=== PATIENT | male | born 1985 | race Caucasian/White ===

== ENCOUNTER 2023-07-12 23:27 | Inpatient (IN) | payer OTHER, SELFPAY ==
[2023-07-12 23:26] VITALS: BP 140/87; PULSE 85; RESP 16; TEMP 36.1; O2SAT 100
[2023-07-13] VITALS (7 sets, daily range): BP systolic 128–150; BP diastolic 75–82; PULSE 73–95; RESP 16–18; TEMP 36.3–37.7; O2SAT 98–100
--- NOTE | 2023-07-13 04:40 | W.PM.CROSSCO ---
Assessment and Plan Assessment and plan (1) Pyelonephritis: Status: Acute Plan Deng Torresist Consult for Admission eHospitalist was contacted with request of consultation for admission. 37-year-old male, past medical history significant for T1DM, HTN, HLD, neurogenic bladder, transferred form outside hospital for further management of pyelonephritis. Patient states he developed right lower quadrant pain on Friday, in addition to feeling very tired. The next day, he felt twice as bad. Reports extreme exhaustion, fever of 103. Patient felt like presentation was similar to prior episode of pyelonephritis and presented for further evaluation of note, patient had ureteral stent placed proximately a month ago, a few days later developed cultures +E faecalis. Since that time, patient has also developed neurogenic bladder, requiring self-catheterization. Patient denies any chest pain, flank pain. Does endorse slight cough, body aches, nausea. Home Medications: Reviewed. Pertinent Medical History: Reviewed. Pertinent Social History: Reviewed. Denies tobacco, illicit drug use. Endorses alcohol use, approximately 2 drinks per day. Exam (performed via interactive video with assistance of bedside nurse): General: alert, cooperative, no acute distress Lungs: clear to auscultation bilaterally without crackle or wheeze CV: regular rate and rhythm without loud murmur rub or gallop Abd: denies tenderness and does not exhibit signs of pain with palpation done by bedside nurse Ext: no pitting edema noted Skin: no rashes, bruises or lesions appreciated on gross visualization of exposed skin Neuro: alert, oriented x 3. facial muscles grossly intact, moves all extremities without any significant focal deficit appreciated by nurse #Pylenephritis #Ureteral stricture, s/p stent placement #Neurogenic bladder ?Per review of outside records, case had been discussed with urology, recommended initiation of vancomycin (based on recent E faecalis infection). Will continue, consult placed to pharmacy for assistance with vancomycin dosing. Urine culture pending outside hospital. ?Continue Rashid catheter at this time ? Acetaminophen, ondansetron available as needed #T1DM ? Okay to use home insulin pump and settings #Hypokalemia ? Per outside records, given 60 mEq potassium bicarb ? Recheck BMP in the AM. Diet: regular VTE ppx: ambulation Code status: FULL CODE Thank you for including Deng Montalvo in this patient's care. This service is available for further assistance as requested by your care team by calling [phone]. Dictation Comment: This document was transcribed utilizing [id number] technology ([address] software). Occasional mistranslation may occur.
--- NOTE | 2023-07-13 06:39 | PC.NURSE ---
pleasant and cooperative. Indep in room. Rashid patent and draining. No c/o pain. Afebrile since Admin to floor. VSS. Dexcom to left upper arm, BG 127 @ 0200. Insulin pump to left thigh, OK'd pt to use.
[2023-07-13 06:57] LABS: Basophils Absolute Auto 0.02 K/uL (0.00-0.30); Basophils Percent Auto 0.3 % (0.0-3.0); Eosinophils Absolute Auto 0.04 K/uL (0.00-0.50); Eosinophils Percent Auto 0.5 % (0.0-7.0); Hematocrit 35.9 % (37.0-53.0); Hemoglobin* 12.5 gm/dL (13.5-17.5); Immature Granulocytes Abs Auto 0.01 K/uL (0.00-0.30); Immature Granulocytes Pct Auto 0.1 %; Lymphocytes Percent Auto 11.3 % (20-44); Mean Corpuscular HGB Conc 35 gm/dL (32-36); Mean Corpuscular Hemoglobin 30 pg (26-34); Mean Corpuscular Volume 87 fL (80-100); Monocytes Percent Auto 9.3 % (0.0-11.0); Neutrophils Percent Auto 78.5 % (42.0-72.0); Platelet Count* 189 K/uL (140-440); RDW Coefficient of Variation % 11.8 % (11.5-15.5); Red Blood Count 4.13 m/uL (4.30-5.90); White Blood Count* 7.52 K/uL (4.50-11.00)
[2023-07-13 06:59] LABS: Slide Review Reflex No
[2023-07-13 07:22] LABS: Chloride* 104 mmol/L (96-114); Potassium* 3.1 mmol/L (3.6-5.1); Sodium* 137 mmol/L (135-149)
[2023-07-13 07:25] LABS: Anion Gap 5 mEq/L (7-15); Blood Urea Nitrogen* 15 mg/dL (5-24); Carbon Dioxide* 28 mmol/L (20-32); Creatinine* 0.9 mg/dL (0.5-1.5); Estimated Glomerular Filt Rate 111 ml/min; Glucose* 99 mg/dL (60-115)
[2023-07-13 07:26] LABS: Calcium* 7.5 mg/dL (8.4-10.6)
--- NOTE | 2023-07-13 07:33 | P.IMHP_ITS ---
Hospitalist- H&P: HPI History of Present Illness Date Seen: 07/13/23 Chief complaint: Pyelonephritis Narrative: ADMISSION HISTORY AND PHYSICAL - HOSPITALIST Chief Complaint: Fever, right lower quadrant pain, pyelonephritis HPI: -patient transferred [place] [facility] early this morning, 07/13/2023 -patient has a medical history notable for humeral radial synostosis, type 1 diabetes on insulin pump, recent ureteral stent placement and diagnosis of neurogenic bladder with a self catheterization routine necessitated -presented to outside emergency room last night, 07/12/2023, with fever, malaise, nausea. Found to have pyelonephritis. Approximately one month ago, during a routine cardiac appointment and scans - his right kidney was noted to be enlarged and ureter stenotic. when a distal approach stent failed, a nephrostomy tube and stent was placed. 3 days after rem oval of nephrostomy, he was hospitalized for 4 days [place] with similar presentation and pyelonephritis. Enterococcus faecalis was isolated from that urine culture. Last night, patient had elevated, mild, white blood cell count. Markedly elevated CRP at 145. Blood cultures were drawn. Urine culture is pending. Cefepime and vancomycin were ordered. Fluid bolus was given. Patient was t ransferred to [place] secondary to no bed availability in the [facility]. Vitals have been stable since arrival. He has been afebrile. CODE STATUS: FULL CODE EMERGENCY CONTACT PLAN: Mother and reid Gonzalez I've updated the [facility], medications and allergies in the Expanse tabs. INVESTIGATIONS: LABS/MICRO/ECG/IMAGING Afebrile since arrival. 130/82, pulse 88, respirations 16, pulse ox 100% on room air. Weight 84.9 kilos. At [place] -hemoglobin 14 -white blood cell count 10.2 -potassium 2.9 -creatinine 1.2 -total calcium 8.5 -LFTs normal -CRP 145 -normal lactate of 1.3 Urine reveals moderate leukocyte esterase, negative nitrite, negative glucose, trace ketones, greater than 100 white blood cells, 3-10 red blood cells, present bacteria Beta hydroxybutyrate 0.1 -negative for influenza, SARS-CoV-2 -2 blood cultures pending drawn at 8:54 p.m. on 07/12/2023 at [place] Urine culture from 06/15: Enterococcus faecalis, susceptible to ampicillin, daptomycin, nitrofurantoin, vancomycin -normal chest x-ray - done at [place] Abdomen pelvis CT - done at [place]: -acute right pyelonephritis -mild right hydronephrosis, right ureteral stent in place proximal tip near the utero pelvic junction distal tip within the urinary bladder Patient receive 17 150 mg of IV vancomycin that started at 9:05 p.m. on 07/12/2023 Patient received a dose of cefepime, 2 g at 9:05 a.m. on 07/12. Patient received 60 once potassium bicarb at 8:45 p.m. on 07/12 A 14 Telugu coude Rashid catheter was placed at 8:00 p.m. on 07/12/2023 White count is down to 7.5. Potassium is dropped to 3.1. CRP is down to 13.3 procalcitonin is 0.3 REVIEW OF SYSTEMS: 12-point ROS completed with patient and negative unless otherwise stated in HPI or below. PHYSICAL EXAM: CONSTITUTIONAL: Conversive, good historian. A/O. Knows setting and context. VITAL SIGNS: see record. HEENT: Normocephalic, atraumatic. PERRL, EOMI, conjunctivae pink, no scleral icterus. Ears and nose externally normal. Pharynx normal. NECK: No JVD. No carotid bruit, no thyromegaly, no adenopathy. CHEST: Clear to auscultation bilaterally HEART: S1 and S2 normal. No harsh murmurs. Edema MUSCULOSKELETAL: No gross joint deformity or swelling. NEURO: Cranial nerves intact. Grossly intact. No asymmetric findings. SKIN: No rashes, petechiae, concerning changes PSYCHIATRIC: Euthymic. ADMIT TO MEDSURG: FLOOR CARE DVT: SCDs GI: PO intake Time spent: Today I spent 75 minutes seeing the patient, discussing the patient with ER staff, reviewing Expanse and EPIC notes/diagnostics, discussing the care plan with our care time that includes social work, PT/OT, pharmacy, RT, mcc and documenting my impressions and plan in the medical record. 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 ?Q70.03 - Fused fingers, bilateral (ICD-10) Humeroradial synostosis of both upper extremities ?Q74.0 - Other congenital malformations of upper limb(s), including shoulder girdle (ICD-10) Ureteral stent present ?Z96.0 - Presence of urogenital implants (ICD-10) Ureteral stricture ?N13.5 - Crossing vessel and stricture of ureter without hydronephrosis (ICD- 10) Neurogenic bladder ?N31.9 - Neuromuscular dysfunction of bladder, unspecified (ICD-10) Hypertension ?I10 - Essential (primary) hypertension (ICD-10) Hyperlipidemia ?E78.5 - Hyperlipidemia, unspecified (ICD-10) Asthma ?J45.909 - Unspecified asthma, uncomplicated (ICD-10) Type 1 diabetes ?E10.9 - Type 1 diabetes mellitus without complications (ICD-10) Surgical History (Updated 07/13/23 @ 11:09 by Kiesha Robb MD) History of heart surgery ?Z98.890 - Other specified postprocedural states (ICD-10) History of nephrostomy Social History (Updated 07/13/23 @ 11:09 by Kiesha Robb MD) Narrative: single. lives alone. no children. works for [employer]. nonsmoker. no recreational drugs. What is your current living situation?: I presently have a place to live Problems where you live: no known problems Problems where you live details: n/a In the past 12 months, utilities in danger of being shut off: no In the past 12 mos, have been you worried that your food would run out before you had money to buy more?: never true In the past 12 mos, the food you bought just didn't last and you didn't have money to buy more?: never true Highest level of school completed/degree received: Master's degree Smoking Status: Never smoker How often do you have a drink containing alcohol: 4 or more times a week Alcohol type: wine Alcohol type details: 1-2 glasses red wine/day How many standard drinks containing alcohol do you have on a typical day: 1 or 2 How often do you have six or more drinks on one occasion: Less than monthly AUDIT-C Alcohol total score: 5 Non-prescribed substance use: denies use Caffeine: Yes (Cold Brew Coffee) How often does anyone, including family, friends and others, physically hurt you : never How often does anyone, including family, friends and others, insult or talk down to you: never How often does anyone, including family, friends and others, threaten you with harm: never How often does anyone, including family, friends and others, scream or curse at you: never Meds Home Medications and Allergies Home Medications Medication Instructions Recorded Confirmed Type amlodipine 5 mg tablet 5 mg PO DAILY 07/13/23 07/13/23 History atorvastatin 10 mg tablet 10 mg PO DAILY 07/13/23 07/13/23 History insulin lispro 100 unit/mL subcut 07/13/23 History subcutaneous solution (Humalog U-100 Insulin) losartan 100 1 tab PO DAILY 07/13/23 07/13/23 History mg-hydrochlorothiazide 25 mg tablet metoprolol succinate 100 mg 100 mg PO DAILY 07/13/23 07/13/23 History tablet,extended release 24 hr Allergies Allergy/AdvReac Type Severity Reaction Status Date / Time No Known Drug Allergies Allergy Verified 07/13/23 02:43 Exam Const: Vital Signs, click to edit/add: Vital Signs - 24 hr 07/12/23 23:26 07/13/23 00:03 07/13/23 03:00 Temperature 97 F L 97.4 F L Pulse Rate [Pulse Oximeter] 85 88 Respiratory Rate 16 16 16 Blood Pressure [Ri ght Arm] 140/87 H 130/82 Pulse Oximetry 100 100 100 Oxygen Delivery Me thod Room Air Room Air Room Air Hospitalist - H&P: Result Labs Labs: Short CBC 07/13/23 Range/Units 06:50 WBC 7.52 (4.50-11.00) K/uL Hgb 12.5 L (13.5-17.5) gm/dL Hct 35.9 L (37.0-53.0) % Plt Count 189 (140-440) K/uL Assessment and Plan Assessment and plan (1) Pyelonephritis: Problem comment: -2nd lifetime occurrence. First was in May 2023, 4 days at the [facility]. -continue cefepime and vancomycin q.12 until blood cultures and urine culture finalized. -patient is afebrile, eating and drinking, has Rashid placed, does not seem acutely ill. Status: Acute (2) Ureteral stent present: Problem comment: -right -8F, placed by Dr. Nye on 06/13/23 Status: Acute (3) Ureteral stricture: Problem comment: Right ureter Status: Acute (4) Neurogenic bladder: Problem comment: -diagnosed summer, self catheterization protocol Status: Acute (5) Type 1 diabetes: Problem comment: -A1c runs in the 6 is. Well managed w/dexcom and insulin pump. -continue current home regimen Status: Acute (6) Asthma: Problem comment: -mild Status: Acute (7) Hyperlipidemia: Problem comment: -statin therapy Status: Acute (8) Hypertension: Problem comment: -for med home regimen to be continued with surveillance Status: Acute
[2023-07-13 07:42] LABS: Albumin* 3.4 g/dL (3.3-5.0)
[2023-07-13 08:05] LABS: C Reactive Protein* 13.3 mg/dL (0.5-1.0)
[2023-07-13 08:12] LABS: Alanine Aminotransferase* 36 U/L (4-50); Alkaline Phosphatase* 109 U/L (40-150); Aspartate Amino Transferase* 34 U/L (12-35); Bilirubin Direct* 0.1 mg/dL (0.0-0.5); Bilirubin Total* 1.2 mg/dL (0.1-1.5); Total Protein* 6.2 g/dL (6.0-8.3)
[2023-07-13 09:10] LABS: Hemoglobin A1C* 6.35 % (0-5.6)
[2023-07-13] MEDS: SODIUM CHLORIDE 0.9 % (FLUSH) 10 ML SYRINGE 5 ML IVF ×2 (09:44→21:08)
[2023-07-13] MEDS: ATORVASTATIN 10 MG TABLET PO (12:46)
[2023-07-13] MEDS: METOPROLOL SUCCINATE (XL) 100 MG TAB PO (12:46)
[2023-07-13] MEDS: BENZOCAINE/MENTHOL 1 EACH LOZENGE MUCOUS MEM ×2 (18:14→21:53)
--- NOTE | 2023-07-13 18:51 | PC.NURSE ---
Pt alert and oriented. VSS. Pt pleasant and cooperative. Pt independent in room with walking and needing very minimal help with LE dressing due to catheter being in place. The catheter was placed at [facility] before admission. Pt?s temperature ranged from 98.7-99.9 during shift; hospitalist notified. Pt has a glucose monitor and insulin pump that coincide with each other to deliver calculated dosage of insulin. Pt blood glucose before breakfast 122; no insulin administered by pump. Pt?s glucose prior to lunch 246; insulin pump administered 5.45 units and Pt administered an additional 2 units. Pt?s blood glucose before dinner 208; insulin pump automatically administered 4.25 units. Pt has dry cough that he has had for one month; worsens with talking; See EMAR for intervention.?
--- NOTE | 2023-07-14 04:06 | PC.NURSE ---
PATIENT PLEASANT AND COOPERATIVE, ALERT AND ORIENTED, UP IND IN ROOM WITH STEADY GAIT, PENDLETON PATENT AND DRAINING, DECLINING PAIN, TOLERATING REGULAR DIET, AFEBRILE.
[2023-07-14 05:00] VITALS: BP 132/83; PULSE 73; RESP 16; TEMP 36.2; O2SAT 99
[2023-07-14 06:23] LABS: Hematocrit 34.9 % (37.0-53.0); Hemoglobin* 12.1 gm/dL (13.5-17.5); Mean Corpuscular HGB Conc 35 gm/dL (32-36); Mean Corpuscular Hemoglobin 30 pg (26-34); Mean Corpuscular Volume 87 fL (80-100); Platelet Count* 176 K/uL (140-440)
[2023-07-14 06:28] LABS: Slide Review Reflex No
[2023-07-14 06:46] LABS: Chloride* 104 mmol/L (96-114); Potassium* 3.2 mmol/L (3.6-5.1); Sodium* 137 mmol/L (135-149)
[2023-07-14 06:49] LABS: Creatinine* 0.8 mg/dL (0.5-1.5); Estimated Glomerular Filt Rate 115 ml/min
[2023-07-14 06:50] LABS: Anion Gap 6 mEq/L (7-15); Blood Urea Nitrogen* 10 mg/dL (5-24); Calcium* 8.4 mg/dL (8.4-10.6); Carbon Dioxide* 27 mmol/L (20-32); Glucose* 114 mg/dL (60-115)
[2023-07-14 06:53] LABS: C Reactive Protein* 6.7 mg/dL (0.5-1.0)
[2023-07-14 07:45] VITALS: BP 145/87; PULSE 82; RESP 18; TEMP 36; O2SAT 97
[2023-07-14] MEDS: METOPROLOL SUCCINATE (XL) 100 MG TAB PO (09:19)
[2023-07-14] MEDS: ATORVASTATIN 10 MG TABLET PO (09:20)
[2023-07-14] MEDS: SODIUM CHLORIDE 0.9 % (FLUSH) 10 ML SYRINGE 5 ML IVF ×2 (09:20→21:40)
[2023-07-14 10:45] VITALS: BP 143/93; PULSE 80; RESP 16; TEMP 36.3; O2SAT 99
[2023-07-14 15:00] VITALS: BP 143/87; PULSE 82; RESP 16; TEMP 36.4; O2SAT 99
--- NOTE | 2023-07-14 15:31 | PM.IMPN1 ---
Progress Note: A&P Assessment and plan (1) Pyelonephritis: Problem details: -2nd lifetime occurrence. First was in May 2023, 4 days at the [facility]. -continue cefepime and vancomycin q.12 until blood cultures and urine culture finalized. -patient is afebrile, eating and drinking, has Rashid placed, does not seem acutely ill. Status: Acute (2) Ureteral stent present: Problem details: -right -8F, placed by Dr. Nye on 06/13/23 Status: Acute (3) Ureteral stricture: Problem details: Right ureter Status: Acute (4) Neurogenic bladder: Problem details: -diagnosed summer, self catheterization protocol Status: Acute Assessment and Plan: Need to proceed with teaching for self catheterization. (5) Type 1 diabetes: Problem details: -A1c runs in the 6 is. Well managed w/dexcom and insulin pump. -continue current home regimen Status: Acute (6) Asthma: Problem details: -mild Status: Acute (7) Hyperlipidemia: Problem details: -statin therapy Status: Acute (8) Hypertension: Problem details: -for med home regimen to be continued with surveillance Status: Acute Plan 1. Continue with current regimen until we obtain results of cultures. 2. Reviewed with patient. He is agreeable. Time Spent With Patient Total time spent: 30 Subjective Time Seen by Provider: 11:30 Date Seen: 07/14/23 Interval history: Hospital day 3. Feeling much improved. Still receiving IV antibiotics. Tolerating. Denies diarrhea. No more fevers, rigors, diaphoresis. Still waiting results of cultures obtained at the [facility]. Exam Narrative: Exam Narrative: Examined in his room. Vision and hearing are grossly normal. Alert, oriented to self, place, time, situation. Friendly, cooperative, articulate, even jovial. Mood and affect are congruent. Lungs clear to auscultation. Heart tones with regular rhythm. Abdomen with active bowel sounds, soft, nontender. Rashid catheter in place. No focal motor neurologic deficits. Const: Vital Signs, click to edit/add: Vital Signs - 24 hr 07/13/23 19:00 07/13/23 23:00 07/13/23 23:00 Temperature 98.2 F Pulse Rate [Pulse Oximeter] 73 Respiratory Rate 16 16 Blood Pressure [Ri ght Arm] 150/79 H Pulse Oximetry 99 99 Oxygen Delivery Me thod Room Air 07/13/23 23:00 07/14/23 05:00 07/14/23 07:45 Temperature 98.0 F 97.1 F L 96.8 F L Pulse Rate [Pulse Oximeter] 81 73 82 Respiratory Rate 16 16 18 Blood Pressure [Ri ght Arm] 133/75 132/83 145/87 H Pulse Oximetry 100 99 97 Oxygen Delivery Me thod Room Air Room Air Room Air 07/14/23 07:45 07/14/23 10:45 Temperature 97.4 F L Pulse Rate [Pulse Oximeter] 80 Respiratory Rate 16 Blood Pressure [[facility] Arm] 143/93 H Pulse Oximetry 97 99 Oxygen Delivery Me thod Room Air Documenting provider has reviewed patient's vital signs: yes Labs Labs: Laboratory Results - last 24 hr 07/14/23 06:06 WBC 4.30 L RBC 4.00 L Hgb 12.1 L Hct 34.9 L MCV 87 MCH 30 MCHC 35 Plt Count 176 Sodium 137 Potassium 3.2 L Chloride 104 Carbon Dioxide 27 Anion Gap 6 L BUN 10 Creatinine 0.8 Estimated GFR 115 Glucose 114 Calcium 8.4 C-Reactive Protein 6.7 H
[2023-07-14] MEDS: POTASSIUM BICARB 25 MEQ EFFERVESCENT TAB PO ×2 (16:11→17:46)
[2023-07-14] MEDS: BENZOCAINE/MENTHOL 1 EACH LOZENGE MUCOUS MEM ×2 (17:45→19:48)
[2023-07-14 19:00] VITALS: BP 154/86; PULSE 88; RESP 16; TEMP 36.7; O2SAT 100
[2023-07-14 23:00] VITALS: O2SAT 100
--- NOTE | 2023-07-14 23:20 | PC.NURSE ---
End of Shift: Patient pleasant and cooperative. Afebrile. Denies pain. Up independently in room. Tolerating regular diet with no nausea. Managing own insulin pump. Gay patent.
[2023-07-15 00:11] VITALS: BP 147/84; PULSE 78; RESP 16; TEMP 37.1; O2SAT 100
[2023-07-15] MEDS: BENZOCAINE/MENTHOL 1 EACH LOZENGE MUCOUS MEM (00:18)
[2023-07-15 04:41] VITALS: BP 138/87; PULSE 75; RESP 16; TEMP 37.4; O2SAT 98
--- NOTE | 2023-07-15 05:17 | PC.NURSE ---
[id number]: Patient pleasant and cooperative. Denies pain. Independent in room. via[employer]nsics patent. Afebrile. PRN lozenge for intermittent chronic dry cough.
[2023-07-15 06:24] LABS: Hemoglobin* 12.7 gm/dL (13.5-17.5); Mean Corpuscular HGB Conc 35 gm/dL (32-36); Mean Corpuscular Hemoglobin 31 pg (26-34); Mean Corpuscular Volume 87 fL (80-100); Platelet Count* 191 K/uL (140-440); Red Blood Count 4.13 m/uL (4.30-5.90); White Blood Count* 4.53 K/uL (4.50-11.00)
[2023-07-15 06:25] LABS: Slide Review Reflex No
[2023-07-15 06:34] LABS: Potassium* 3.8 mmol/L (3.6-5.1)
[2023-07-15 09:00] VITALS: BP 139/86; PULSE 82; RESP 16; TEMP 36.4; O2SAT 98
[2023-07-15] MEDS: METOPROLOL SUCCINATE (XL) 100 MG TAB PO (10:08)
[2023-07-15] MEDS: ATORVASTATIN 10 MG TABLET PO (10:08)
[2023-07-15] MEDS: 0.9 % SODIUM CHLORIDE 250 ml IV (10:10)
[2023-07-15] MEDS: SODIUM CHLORIDE 0.9 % (FLUSH) 10 ML SYRINGE 5 ML IVF (10:10)
--- NOTE | 2023-07-15 14:22 | PC.NURSE ---
VSS AND AFEBRILE. LS CLEAR. BS ACTIVE AND PASSING GAS. TOLERATING REGULAR DIET WITH NO C/O N/V. DENIES PAIN. PENDLETON DC'D AND REVIEWED PROCESS OF STRAIGHT CATHETERIZATION TO ENSURE SAFE TECHNIQUE. DISCUSSED HANDWASHING AND JOSE-CARE PRIOR TO CATHETERIZATION AND PATIENT SENT WITH SEVERAL DAYS OF PROVIDONE SWABS TO CLEANSE WITH. SALINE LOCK DC'D AND REVIEWED DC INSTRUCTIONS. PATIENT SHOWERED PRIOR TO DISCHARGE AND DC'D HOME VIA SELF.
--- NOTE | 2023-07-15 15:50 | P.DS_ITS ---
DS: Providers Provider Time Seen by Provider: 11:00 Date Seen: 07/15/23 Date of admission: 07/12/23 23:27 Primary care physician: Nafisa Liam MD Admitting Clinician: Awa Angel MD Attending Physician on discharge: Awa Angel MD Date of Discharge: 07/15/23 DS: Diagnosis Discharge Diagnosis (1) Pyelonephritis: Status: Acute Problem details: -2nd lifetime occurrence. First was in May 2023, 4 days at the [facility]. -continue cefepime and vancomycin q.12 until blood cultures and urine culture finalized. -patient is afebrile, eating and drinking, has Rashid placed, does not seem acutely ill. (2) Ureteral stricture: Status: Acute Problem details: Right ureter (3) Ureteral stent present: Status: Acute Problem details: -right -8F, placed by Dr. Nye on 06/13/23 (4) Neurogenic bladder: Status: Acute Problem details: -diagnosed summer, self catheterization protocol (5) Hypertension: Status: Acute Problem details: -for med home regimen to be continued with surveillance (6) Type 1 diabetes: Status: Acute Problem details: -A1c runs in the 6 is. Well managed w/dexcom and insulin pump. -continue current home regimen (7) Asthma: Status: Acute Problem details: -mild (8) Hyperlipidemia: Status: Acute Problem details: -statin therapy DS: Summary Hospital Course Hospital Course: HPI: -patient transferred [place] [facility] early this morning, 07/13/2023 -patient has a medical history notable for humeral radial synostosis, type 1 diabetes on insulin pump, recent ureteral stent placement and diagnosis of neurogenic bladder with a self catheterization routine necessitated -presented to outside emergency room last night, 07/12/2023, with fever, malaise, nausea. Found to have pyelonephritis. Approximately one month ago, during a routine cardiac appointment and scans - his right kidney was noted to be enlarged and ureter stenotic. when a distal approach stent failed, a nephrostomy tube and stent was placed. 3 days after removal of nephrostomy, he was hospitalized for 4 days [place] with similar presentation and pyelonephritis. Enterococcus faecalis was isolated from that urine culture. Last night, patient had elevated, mild, white blood cell count. Markedly elevated CRP at 145. Blood cultures were drawn. Urine culture is pending. Cefepime and vancomycin were ordered. Fluid bolus was given. Patient was transferred to [place] secondary to no bed availability in the [facility]. Vitals have been stable since arrival. He has been afebrile. His condition improved substantially over a relatively short period of time. Fever resolved. Nausea resolved. Malaise resolved. In time we obtain the results of the urine culture from the [place] [facility]. Urine culture grew out Klebsiella aerogenes which had intermediate sensitivity to nitrofurantoin and was susceptible to piperacillin and tazobactam, ceftazidime, ceftriaxone, cefepime, aztreonam, ertapenem, meropenem, gentamicin, tobramycin, and levofloxacin. At time of discharge we stopped the IV cefepime and switched him to oral Omnicef 300 mg 2 times daily for 10 more days. Recommended he have follow up with primary care physician as well as urologist as specified below. We retired him self catheterization techniques to minimize his risk of causing urinary tract infections by carrying out this technique in an unsafe fashion. Status at Discharge Functional status at discharge: independent ambulation Overall status at discharge: patient is back to baseline Time Spent with Patient Time attestation: Total time spent providing and/or coordinating discharge services: Time spent: Less than 30 minutes Exam Narrative: Exam Narrative: Examined in his room. Vision and hearing are grossly normal. Alert, oriented to self, place, time, situation. Friendly, cooperative, articulate, even jovial. Mood and affect are congruent. Lungs clear to auscultation. Heart tones with regular rhythm. Abdomen with active bowel sounds, soft, nontender. Rashid catheter is removed. No focal motor neurologic deficits. Const: Vital Signs, click to edit/add: Vital Signs - 24 hr 07/14/23 19:00 07/14/23 23:00 07/15/23 00:11 Temperature 98.1 F 98.8 F Pulse Rate [Pulse Oximeter] 88 78 Respiratory Rate 16 16 Blood Pressure [Ri ght Arm] 154/86 H 147/84 H Pulse Oximetry 100 100 100 Oxygen Delivery Me thod Room Air Room Air 07/15/23 04:41 07/15/23 09:00 07/15/23 09:00 Temperature 99.3 F 97.6 F Pulse Rate [Pulse Oximeter] 75 82 Respiratory Rate 16 16 Blood Pressure [Ri ght Arm] 138/87 139/86 Pulse Oximetry 98 98 98 Oxygen Delivery Me thod Room Air Room Air 07/15/23 09:00 Temperature Pulse Rate [Pulse Oximeter] 82 Respiratory Rate 16 Blood Pressure [Ri ght Arm] Pulse Oximetry Oxygen Delivery Me thod Documenting provider has reviewed patient's vital signs: yes DS: Data Data Completed and Pending Labs on day of discharge: Labs from last 24 hours 07/15/23 06:08 WBC 4.53 RBC 4.13 L Hgb 12.7 L Hct 36.0 L MCV 87 MCH 31 MCHC 35 Plt Count 191 Potassium 3.8 Discharge Plan Discharge Disposition: Home, Self-Care Date of Admission: 07/12/23 23:27 Attending Provider on Discharge: Jose Zambrano Primary Care Provider: Nafisa Lima Condition: Improved Anticipated Discharge Date/Time: 07/15/23 12:30 Discharge Medications: New cefdinir 300 mg capsule 300 mg PO BID Qty: 20 0RF Continued atorvastatin 10 mg tablet 10 mg PO DAILY metoprolol succinate 100 mg tablet extended release 24 hr 100 mg PO DAILY amlodipine 5 mg tablet 5 mg PO DAILY losartan-hydrochlorothiazide 100-25 mg tablet 1 tab PO DAILY insulin lispro [Humalog U-100 Insulin] 100 unit/mL solution subcut Discharge Orders: Discharge Order (Routine); Ordered 07/15/23 Ordered By: Jose Zambrano Patient Education: Cefdinir (By mouth), Urinary Tract Infection in Men (DC), Catheter-associated Urinary Tract Infection (DC) Additional Instructions: 1. Safe self urethral catheterization techniques; 2. Follow-up with primary care physician in 5-7 days with urinalysis and urine culture; 3. [id number] Align probiotic daily for 1 month; 4. May return to work with no restrictions or limitations on Friday; 5. Follow up with urologist before your trip to [place] Activity Level: No Restrictions and Activity as Tolerated Discharge Diet: 2 gm Sodium Follow Up Appointments: Nafisa Lima MD [Primary Care Provider] - Ericka Brito CNP [Referring] - 07/23/23 11:10 am (Follow-up appointment postop.) Forms: [employer] Info Instructions
== END 2023-07-15 13:58 | disposition home or self-care (01) | DRG 690 ==
PROVIDERS: Internal Medicine; Admitting Provider Family Medicine; Visit Provider Family Medicine
DX: N10 Acute pyelonephritis (principal); E10.9 Type 1 diabetes mellitus without complications; Z96.0 Presence of urogenital implants; N13.5 Crossing vessel and stricture of ureter without hydronephrosis; N31.9 Neuromuscular dysfunction of bladder, unspecified; J45.909 Unspecified asthma, uncomplicated; I10 Essential (primary) hypertension; E78.5 Hyperlipidemia, unspecified
CPT/HCPCS: 36415; 80048; 80076; 83036; 84132; 84145; 85025; 85027; 86140; A9270; J0692; J3370; J7050